=== PATIENT | female | born 1965 | race Caucasian/White ===

== ENCOUNTER 2019-07-30 08:57 | Inpatient (IN) | payer BC ==
[~2019-07-30 08:57] MED LIST: Lactated Ringers 1,000 ML IV SCH; Lidocaine 1%/Sod Bicarbonate in NS 8.4% 1 ML Syringe IDERM PRN; Midazolam 1 MG/ML 2 ML SDV ONE; Propofol 200 MG/20 ML SDV ONE; Sodium Chloride 0.9% 10 ML Syringe FLUSH PRN; fentaNYL 100 MCG/2 ML SDV ONE
[2019-07-30] MEDS ORDERED: oxyCODONE ER 10 MG TAB.ER PO SCH (09:00)
[2019-07-30] MEDS ORDERED: Pregabalin 25 MG Cap PO SCH (09:00)
[2019-07-30] MEDS ORDERED: Acetaminophen 325 MG Tab PO SCH (09:00)
--- NOTE | 2019-07-30 09:22 | PCM.PREANE ---
Preanesthetic Assessment - Procedure Proposed Procedure: right total hip arthroplasty - Anesthesia/Transfusion/Family Hx Anesthesia History: Prior Anesthesia Without Reaction Family History of Anesthesia Reaction: No Transfusion History: No Prior Transfusion(s) - Review of Systems General: No Symptoms Pulmonary: Cough (yesterday- stratchy cough and throat- no cold) Cardiovascular: No Symptoms Gastrointestinal: No Symptoms Neurological: No Symptoms Other: Reports: Anxiety - Physical Assessment NPO Status Date: 07/29/19 NPO Status Time: 21:00 Vital Signs: 138/77 66 97% 16 98.0 Height: 5 ft 4 in Weight: 79.061 kg ASA Class: 2 Mental Status: Alert & Oriented x3 Airway Class: Mallampati = 1 Dentition: Reports: Normal Dentition Thyro-Mental Finger Breadths: 3 Mouth Opening Finger Breadths: 3 ROM/Head Extension: Full Lungs: Clear to Auscultation, Normal Respiratory Effort Cardiovascular: Regular Rate, Regular Rhythm - Lab Values: Laboratory Last Values MRSA (PCR) Negative 07/03/19 12:20 - Allergies Allergies/Adverse Reactions: Allergies Allergy/AdvReac Type Severity Reaction Status Date / Time levofloxacin [From Levaquin] Allergy Mild Itching Verified 11/12/16 06:48 simvastatin [From Zocor] AdvReac Muscle Verified 11/12/16 06:48 Aches - Blood Blood Available: Yes - Acknowledgements Anesthesia Type Planned: Spinal Pt an Appropriate Candidate for the Planned Anesthesia: Yes Alternatives and Risks of Anesthesia Discussed w Pt/Guardian: Yes Pt/Guardian Understands and Agrees with Anesthesia Plan: Yes PreAnesthesia Questionnaire HEENT History: Reports: Impaired Vision Cardiovascular History: Reports: None, High Cholesterol, Other (See Below) Other Cardiovascular History: freqent pvcs, palpitations, cardiac cath Respiratory History: Reports: None Gastrointestinal History: Reports: Chronic Diarrhea (better now), Colon Polyp, Diverticulosis, Gastritis, GERD, Other (See Below) Other Gastrointestinal History: elevated LFTS Genitourinary History: Reports: Renal Calculus 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: Musculoskeletal History: Reports: Other (See Below) Other Musculoskeletal History: L hip pain Neurological History: Reports: None Psychiatric History: Reports: Anxiety, Depression Endocrine/Metabolic History: Reports: None Hematologic History: Reports: None Immunologic History: Reports: None Oncologic (Cancer) History: Reports: None Dermatologic History: Reports: None - Infectious Disease History Infectious Disease History: Reports: Chicken Pox - Past Surgical History Head Surgeries/Procedures: Reports: None HEENT Surgical History: Reports: Oral Surgery Cardiovascular Surgical History: Reports: None Respiratory Surgical History: Reports: None GI Surgical History: Reports: Appendectomy, Cholecystectomy, Colonoscopy, EGD, Hernia Repair/Other, Lysis of Adhesions, Small Bowel Other GI Surgeries/Procedures: appendectomy and surgical intervention for SBO Female Surgical History: Reports: Section Male Surgical History: Reports: None Endocrine Surgical History: Reports: None Neurological Surgical History: Reports: None Musculoskeletal Surgical History: Reports: Hip Replacement Oncologic Surgical History: Reports: None - SUBSTANCE USE Smoking Status *Q: Current Every Day Smoker Tobacco Use Within Last Twelve Months: Cigarettes Second Hand Smoke Exposure: Yes Days Per Week of Alcohol Use: 0 Recreational Drug Use History: No - HOME MEDS Home Medications: Home Meds DULoxetine [Cymbalta] 60 mg PO DAILY #1 11/04/14 [Rx] Ezetimibe [Zetia] 10 mg PO DAILY #1 11/04/14 [Rx] atorvaSTATin [Lipitor] 30 mg PO DAILY #1 11/04/14 [Rx] Aspirin [Ecotrin EC] 81 mg PO DAILY 07/24/16 [History] Omeprazole Magnesium [Prilosec Otc] 1 tab PO DAILY 07/24/16 [History] Acetaminophen/oxyCODONE [Percocet 325-5 MG] 1 - 2 tab PO Q4H PRN #60 tablet [Rx] Bisacodyl [Dulcolax] 5 mg PO DAILY PRN #0 tablet 11/13/16 [Rx] Docusate Sodium [Colace] 100 mg PO BID cap 11/13/16 [Rx] Famotidine [Pepcid] 20 mg PO Q12H tablet 11/13/16 [Rx] Magnesium Hydroxide [Milk of Magnesia] 30 ml PO BID PRN #0 cup 11/13/16 [Rx] Multivitamins,Therapeutic [Thera] 1 each PO DAILY@0800 tablet 11/13/16 [Rx] Rivaroxaban [Xarelto] 10 mg PO DAILY #34 tablet 11/13/16 [Rx] Sennosides [Senna] 8.6 mg PO BID PRN #0 tablet 11/13/16 [Rx] - CURRENT (IN HOUSE) MEDS Current Meds: Current Medications Acetaminophen (Tylenol) 975 mg PO ONETIME [facility] Stop: 07/30/19 16:00 Bisacodyl (Dulcolax) 5 mg PO DAILY PRN PRN Reason: Constipation Morphine Sulfate 8 mg/Epinephrine HCl 0.3 mg/Cefuroxime Sodium 750 mg/Ketorolac Tromethamine 30 mg/Sodium Chloride 27.9 ml 0 mg .XX ONETIME ONE Stop: 07/30/19 11:01 Cyclobenzaprine HCl (Flexeril) 10 mg PO BID PRN PRN Reason: Spasms Docusate Sodium (Colace) 100 mg PO BID MANSI Famotidine (Pepcid) 20 mg PO Q12H [facility] Lactated Ringer's (Ringers, Lactated) 1,000 mls @ 125 mls/hr IV ASDIRECTED [facility] Stop: 07/30/19 23:00 Cefazolin Sodium/Dextrose 2 gm (/ Premix) 50 mls @ 100 mls/hr IV Q8H [facility] Stop: 07/30/19 23:14 Ketorolac Tromethamine (Toradol) 15 mg IVPUSH Q6H PRN PRN Reason: Pain Lidocaine/Sodium Bicarbonate (Buffered Lidocaine 1% In Ns 8.4%) 0.25 ml IDERM ONETIME PRN PRN Reason: Prior to IV Start Stop: 07/30/19 18:00 Magnesium Hydroxide (Milk Of Magnesia) 30 ml PO BID PRN PRN Reason: Constipation Morphine Sulfate (Morphine) 2 mg IVPUSH Q2H PRN PRN Reason: Breakthrough Pain Naloxone HCl (Narcan) 0.1 mg IVPUSH Q5M PRN PRN Reason: Oversedation Ondansetron HCl (Zofran) 4 mg IVPUSH Q6H PRN PRN Reason: Nausea/Vomiting Oxycodone HCl (Oxycontin) 10 mg PO ONETIME [facility] Stop: 07/30/19 16:00 Oxycodone/Acetaminophen (Percocet 325-5 Mg) 1 - 2 tab PO Q4H PRN PRN Reason: Pain Pregabalin (Lyrica) 50 mg PO ONETIME [facility] Stop: 07/30/19 16:00 Rivaroxaban (Xarelto) 10 mg PO DAILY [facility] Senna (Senna) 8.6 mg PO BID PRN PRN Reason: Constipation Sodium Chloride (Saline Flush) 10 ml FLUSH ASDIRECTED PRN PRN Reason: Keep Vein Open Stop: 07/30/19 18:00 Discontinued Medications Cefazolin Sodium (Ancef) Confirm Administered Dose 2 gm .ROUTE .STK-MED ONE Stop: 07/30/19 08:45 Fentanyl (Sublimaze) Confirm Administered Dose 100 mcg .ROUTE .STK-MED ONE Stop: 07/30/19 08:45 Midazolam HCl (Versed 1 Mg/Ml) Confirm Administered Dose 2 mg .ROUTE .STK-MED ONE Stop: 07/30/19 08:45 Propofol (Diprivan 20 Ml) Confirm Administered Dose 600 mg .ROUTE .STK-MED ONE Stop: 07/30/19 08:45
[2019-07-30] MEDS ORDERED: Morphine PF 10 MG/10 ML SDV ONE (09:35)
[2019-07-30] MEDS ORDERED: ceFAZolin 1 GM Vial ONE (10:16)
--- NOTE | 2019-07-30 11:27 | PCM.CONS ---
H&P History of Present Illness - General Date of Service: 07/30/19 Admit Problem/Dx: Admission Diagnosis/Problem Admission Diagnosis/Problem Osteoarthritis of hip Source of Information: Patient, Old Records, Provider, RN, RN Notes Reviewed History Limitations: Reports: No Limitations - History of Present Illness Initial Comments - Free Text/Narative: Kim Smalls is a 54 yo female patient of Dr. Sesay who is post-operative day 0 of right VASU. Hospital medicine was consulted for post-operative medical care of the following listed medical conditions. At this time she is resting comfortably in bed. Pain is controlled. She denies any chest pain, shortness of breath, palpitations, nausea, or vomiting. She carries a history of: Renal stones, colon polyps, tobacco use, anxiety, HLD, rheumatic fever, GERD, history of small bowel obstruction in 2014 with appendectomy, frequent PVCs, osteopenia , diverticulosis, GERD, elevated LFTs, depression, palpitations. She is a current daily smoker. She is a full code. Her primary care provider is Dr. Alejandra. Right Hip Pain Score (Numeric/FACES): 5 - Related Data Allergies/Adverse Reactions: Allergies Allergy/AdvReac Type Severity Reaction Status Date / Time levofloxacin [From Levaquin] Allergy Mild Itching Verified 07/30/19 15:01 simvastatin [From Zocor] AdvReac Muscle Verified 07/30/19 15:01 Aches Home Medications: Home Meds Ezetimibe [Zetia] 10 mg PO DAILY #1 11/04/14 [Rx] atorvaSTATin [Lipitor] 30 mg PO DAILY #1 11/04/14 [Rx] Aspirin [Ecotrin EC] 81 mg PO DAILY 07/24/16 [History] Desvenlafaxine Succinate [Pristiq] 25 mg PO DAILY 07/30/19 [History] Past Medical History HEENT History: Reports: Impaired Vision Cardiovascular History: Reports: None, High Cholesterol, Other (See Below) Other Cardiovascular History: freqent pvcs, palpitations, cardiac cath Respiratory History: Reports: None Gastrointestinal History: Reports: Chronic Diarrhea (better now), Colon Polyp, Diverticulosis, Gastritis, GERD, Other (See Below) Other Gastrointestinal History: elevated LFTS Genitourinary History: Reports: Renal Calculus [employer]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: Musculoskeletal History: Reports: Other (See Below) Other Musculoskeletal History: L hip pain Neurological History: Reports: None Psychiatric History: Reports: Anxiety, Depression Endocrine/Metabolic History: Reports: None Hematologic History: Reports: None Immunologic History: Reports: None Oncologic (Cancer) History: Reports: None Dermatologic History: Reports: None - Infectious Disease History Infectious Disease History: Reports: Chicken Pox - Past Surgical History Head Surgeries/Procedures: Reports: None HEENT Surgical History: Reports: Oral Surgery Cardiovascular Surgical History: Reports: None Respiratory Surgical History: Reports: None GI Surgical History: Reports: Appendectomy, Cholecystectomy, Colonoscopy, EGD, Hernia Repair/Other, Lysis of Adhesions, Small Bowel Other GI Surgeries/Procedures: appendectomy and surgical intervention for SBO Female Surgical History: Reports: Section Male Surgical History: Reports: None Endocrine Surgical History: Reports: None Neurological Surgical History: Reports: None Musculoskeletal Surgical History: Reports: Hip Replacement Oncologic Surgical History: Reports: None Social & Family History - Family History Cardiac: Reports: Other (See Below) Other Cardiac Family History: heart disease - Tobacco Use Smoking Status *Q: Current Every Day Smoker Years of Tobacco use: 35 Packs/Tins Daily: 0.4 Used Tobacco, but Quit: No Second Hand Smoke Exposure: Yes - Caffeine Use Caffeine Use: Reports: Soda Caffeine Use Comment: dt. mtn. villegas-- 32oz daily - Alcohol Use Days Per Week of Alcohol Use: 0 - Recreational Drug Use Recreational Drug Use: No H&P Review of Systems - Review of Systems: Review Of Systems: See Below General: Reports: No Symptoms. Denies: Fever, Chills HEENT: Reports: No Symptoms. Denies: Headaches, Sore Throat Pulmonary: Reports: No Symptoms. Denies: Shortness of Breath, Wheezing, Pleuritic Chest Pain, Cough, Sputum Cardiovascular: Reports: No Symptoms. Denies: Chest Pain, Palpitations, Edema Gastrointestinal: Reports: No Symptoms. Denies: Abdominal Pain, Constipation, Diarrhea, Nausea, Vomiting Genitourinary: Reports: No Symptoms. Denies: Pain Musculoskeletal: Reports: Leg Pain (right ) Skin: Reports: No Symptoms. Denies: Cyanosis Psychiatric: Reports: No Symptoms. Denies: Confusion Neurological: Reports: Difficulty Walking, Gait Disturbance. Denies: Pre- Existing Deficit Hematologic/Lymphatic: Reports: No Symptoms Immunologic: Reports: No Symptoms Exam - Exam Exam: See Below - Vital Signs Vital Signs: Last Vital Signs Temp 98.0 F 07/30/19 09:10 Pulse 66 07/30/19 09:10 Resp 16 07/30/19 09:10 BP 138/77 07/30/19 09:10 Pulse Ox 97 07/30/19 09:10 Weight: 174 lb - Exam Quality Assessment: DVT Prophylaxis General: Alert, Oriented, Cooperative. No: Mild Distress HEENT: Conjunctiva Clear, EACs Clear, EOMI, Hearing Intact, Mucosa Moist & [place] , Nares Patent, Posterior Pharynx Clear, PERRLA Neck: Supple, Trachea Midline Lungs: Clear to Auscultation, Normal Respiratory Effort Cardiovascular: Regular Rate, Regular Rhythm GI/Abdominal Exam: Normal Bowel Sounds, Soft, Non-Tender, No Distention, No Abnormal Bruit (Female) Exam: Deferred Rectal (Female) Exam: Deferred Back Exam: Normal Inspection, Full Range of Motion Extremities: No Pedal Edema, Normal Capillary Refill, Leg Pain, Limited Range of Motion, Other (Bandage in place on right leg. Bandage is dry and intact. Cooling pack in place. ) Peripheral Pulses: 2+: Radial (L), Radial (R), Dorsalis Pedis (L), Dorsalis Pedis (R) Skin: Warm, Dry, Intact Neurological: Cranial Nerves Intact (Grossly) Neuro Extensive - Mental Status: Alert, Oriented x3, Normal Mood/Affect - Patient Data Lab Results Last 24 hrs: Laboratory Results - last 24 hr 07/30/19 Range/Units 09:27 Blood Type A NEGATIVE Gel Antibody Screen Negative Consult PN Assessment/Plan POD#: 0 Procedures: Procedures AGENT NOS ASSAY W/OPTIC (07/25/16) ASSAY GLUCOSE BLOOD QUANT (06/22/16) ASSAY OF ESTRADIOL (06/22/16) ASSAY OF TOTAL TESTOSTERONE (06/22/16) ASSAY THYROID STIM HORMONE (06/19/16) BREAST TOMOSYNTHESIS BI (09/19/18) C DIFF AMPLIFIED PROBE (07/25/16) CARDIOVASCULAR STRESS TEST (12/09/15) COLONOSCOPY AND BIOPSY (07/25/16) COMP SCREEN MAMMOGRAM ADD-ON (06/19/16) CRYPTOSPORIDIUM AG IA (07/25/16) DRAIN/INJ JOINT/BURSA W/O US (02/15/16) EGD BIOPSY SINGLE/MULTIPLE (07/25/16) GIARDIA AG IA (07/25/16) HT MUSCLE IMAGE SPECT MULT (12/09/15) LEUKOCYTE ASSESSMENT FECAL (07/25/16) MANUAL THERAPY 1/> REGIONS (12/20/16) MR-STAPH DNA AMP PROBE (10/26/16) NEUROMUSCULAR REEDUCATION (12/20/16) PT EVAL LOW COMPLEX 20 MIN (11/20/16) ROUTINE VENIPUNCTURE (06/22/16) SCR MAMMO BI INCL CAD (09/19/18) STOOL CULTR AEROBIC BACT EA (07/25/16) THERAPEUTIC EXERCISES (12/20/16) TISSUE EXAM BY PATHOLOGIST (07/25/16) VANOMYCIN DNA AMP PROBE (07/25/16) VIT D 1 25-DIHYDROXY (06/22/16) X-RAY EXAM OF HIP (01/13/14) X-RAY EXAM OF PELVIS (01/13/14) (1) S/P total hip arthroplasty SNOMED Code(s): 831703757044, 779675305195 Code(s): Z96.649 - PRESENCE OF UNSPECIFIED ARTIFICIAL HIP JOINT Priority: High Current Visit: Yes Qualifiers: Laterality: right Qualified Code(s): Z96.641 - Presence of right artificial hip joint (2) Anxiety SNOMED Code(s): 34218151 Code(s): F41.9 - ANXIETY DISORDER, UNSPECIFIED Priority: Medium Current Visit: No (3) Colon polyps SNOMED Code(s): 38925289 Code(s): K63.5 - POLYP OF COLON Priority: Low Current Visit: No Qualifiers: Colon polyp type: unspecified Colon location: unspecified part of colon Qualified Code(s): K63.5 - Polyp of colon (4) Diverticulosis SNOMED Code(s): 63982855 Code(s): K57.90 - DVRTCLOS OF INTEST, PART UNSP, W/O PERF OR ABSCESS W/O BLEED Priority: Low Current Visit: No Qualifiers: Diverticulosis site: unspecified location Diverticulosis bleeding: diverticulosis without bleeding Qualified Code(s): K57.90 - Diverticulosis of intestine, part unspecified, without perforation or abscess without bleeding (5) GERD (gastroesophageal reflux disease) SNOMED Code(s): 650650011 Code(s): K21.9 - GASTRO-ESOPHAGEAL REFLUX DISEASE WITHOUT ESOPHAGITIS Priority: Medium Current Visit: No Qualifiers: Esophagitis presence: esophagitis presence not specified Qualified Code(s) : K21.9 - Gastro-esophageal reflux disease without esophagitis (6) HLD (hyperlipidemia) SNOMED Code(s): 91009953 Code(s): E78.5 - HYPERLIPIDEMIA, UNSPECIFIED Priority: Medium Current Visit: No Qualifiers: Hyperlipidemia type: unspecified Qualified Code(s): E78.5 - Hyperlipidemia , unspecified (7) HTN (hypertension) SNOMED Code(s): 00995742 Code(s): I10 - ESSENTIAL (PRIMARY) HYPERTENSION Priority: Medium Current Visit: No Qualifiers: Hypertension type: essential hypertension Qualified Code(s): I10 - Essential (primary) hypertension (8) Osteoarthritis SNOMED Code(s): 634380226 Code(s): M19.90 - UNSPECIFIED OSTEOARTHRITIS, UNSPECIFIED SITE Priority: High Current Visit: Yes Qualifiers: Osteoarthritis location: hip Osteoarthritis type: primary Laterality: right Qualified Code(s): M16.11 - Unilateral primary osteoarthritis, right hip Problem List Initiated/Reviewed/Updated: Yes Plan: I/P: Acute: S/P right total hip arthroplasty - post-operative day 0 -DVT prophylaxis and pain management per primary care team -PT/OT -IS/RT -Monitor oxygen saturation -Titrate oxygen as needed -Home medications reviewed -Vital signs stable -Monitor labs -Pre-operative Hgb was 15.3 -Pre-operative GFR was 81 Osteoarthritis of right hip -Pain management per primary care team Chronic: Renal stones colon polyps tobacco use anxiety HLD rheumatic fever GERD history of small bowel obstruction in 2014 with appendectomy frequent PVCs osteopenia diverticulosis GERD elevated LFTs depression palpitations Plan: Telemetry CM for discharge planning GI prophylaxis Home medications as indicated Other orders as listed above Routine AM labs She is a full code. Her PCP is Dr. Alejandra Thank you for allowing us to participate in the care of this patient!! Requesting Provider: Dr. Sesay Date Consult Requested: 07/30/19 Patient History Reviewed: Yes Admission H&P Reviewed: Yes
[2019-07-30] MEDS ORDERED: Sennosides 8.6 MG Tab PO PRN (11:30)
[2019-07-30] MEDS ORDERED: Bisacodyl 5 MG Tab PO PRN (11:30)
[2019-07-30] MEDS ORDERED: Magnesium Hydroxide 400 MG/5 ML Susp 30 ML Cup PO PRN (11:30)
[2019-07-30] MEDS ORDERED: Morphine 2 MG/ML Syringe IVPUSH PRN (11:30)
[2019-07-30] MEDS ORDERED: Ondansetron 4 MG/2 ML SDV IVPUSH PRN ×2 (11:30→12:14)
[2019-07-30] MEDS ORDERED: Naloxone 0.4 MG/ML SDV IVPUSH PRN (11:30)
[2019-07-30] MEDS ORDERED: Cyclobenzaprine 10 MG Tab PO PRN (11:30)
[2019-07-30] MEDS ORDERED: Albuterol/Ipratropium 3.0-0.5 MG/3 ML Neb Soln NEB PRN (11:36)
[2019-07-30] MEDS ORDERED: Lactated Ringers 1,000 ML ONE ×2 (11:56→12:16)
[2019-07-30] MEDS ORDERED: ePHEDrine/Normal Saline 25 MG/5 ML Syringe ONE ×3 (11:57→12:47)
[2019-07-30] MEDS ORDERED: diphenhydrAMINE 50 MG/ML SDV IVPUSH PRN (12:14)
[2019-07-30] MEDS ORDERED: fentaNYL 100 MCG/2 ML SDV IVPUSH PRN (12:14)
[2019-07-30] MEDS ORDERED: Lidocaine 1% 4 ML ONE (12:17)
[2019-07-30] MEDS ORDERED: Phenylephrine/Normal Saline 100 MCG/ML 10 ML Syringe ONE (12:23)
[2019-07-30] MEDS: ceFAZolin 1 GM Vial ONE ×2 (12:40→13:10)
[2019-07-30] MEDS: Bupivacaine 0.25% 10 ML SDV ONE ×2 (12:40→13:12)
[2019-07-30] MEDS: Iodine/Sodium Iodide 2% Tincture 30 ML Bottle ONE ×2 (12:41→13:06)
[2019-07-30] MEDS: Morphine 8 MG, EPINEPHrine 0.3 MG, Cefuroxime 750 MG, Ketorolac 30 MG, Sodium Chloride ... ONE ×10 (12:41→13:13)
[2019-07-30] MEDS: Vancomycin 1 GM SDV ONE ×2 (12:44→13:16)
[2019-07-30] MEDS ORDERED: Scopolamine 1.5 MG Transdermal Patch TRDERM PRN (12:45)
[2019-07-30] MEDS ORDERED: Midazolam 1 MG/ML 2 ML SDV ONE (13:14)
--- NOTE | 2019-07-30 13:50 | PCM.POSTAN ---
POST ANESTHESIA ASSESSMENT - MENTAL STATUS Mental Status: Alert, Oriented - VITAL SIGNS Vital Signs: Last Vital Signs Temp 98.0 F 07/30/19 09:10 Pulse 66 07/30/19 09:10 Resp 16 07/30/19 09:10 BP 138/77 07/30/19 09:10 Pulse Ox 97 07/30/19 09:10 78 16 98.4 120/69 99% - RESPIRATORY Respiratory Status: Respiratory Rate WNL, Airway Patent, O2 Saturation Stable, Supplemental Oxygen - CARDIOVASCULAR CV Status: Pulse Rate WNL, Blood Pressure Stable - GASTROINTESTINAL GI Status: No Symptoms - PAIN Pain Score: 0 - POST OP HYDRATION Hydration Status: Adequate & Stable
[2019-07-30] MEDS ORDERED: Nicotine 21 MG/24 Hr Patch TRDERM SCH (14:00)
[2019-07-30] MEDS ORDERED: Sodium Chloride 0.9% 500 ML IV ONE (15:37)
--- NOTE | 2019-07-30 15:44 | CR ---
Pelvis and left hip: AP view of the pelvis was obtained as well as crosstable lateral view of left hip. Comparison: Prior pelvis and left hip study of 11/12/16. Bilateral hip prosthesis are seen. Right hip prosthesis appears recently placed. Left hip prosthesis is stable from prior exam. Bony structures are osteopenic. No acute bony abnormality is identified. Impression: 1. Recently placed right hip prosthesis. 2. Stable left hip prosthesis. 3. Nothing acute is seen. Diagnostic code #2
[2019-07-30] MEDS: ceFAZolin 2 GM in Premix Bag 1 BAG IV SCH (18:28)
[2019-07-30] MEDS: Acetaminophen/oxyCODONE 325-5 MG Tab PO PRN ×2 (18:28→22:52)
[2019-07-30] MEDS: Famotidine 20 MG Tab PO SCH (21:01)
[2019-07-30] MEDS: Docusate Sodium 100 MG Cap PO SCH (21:01)
[2019-07-30] MEDS ORDERED: Lactated Ringers 500 ML IV ONE (21:19)
[2019-07-30] MEDS: Ketorolac 15 MG/ML SDV IVPUSH PRN (22:58)
[2019-07-31] MEDS: ceFAZolin 2 GM in Premix Bag 1 BAG IV SCH ×2 (03:29→10:59)
[2019-07-31] MEDS: Ketorolac 15 MG/ML SDV IVPUSH PRN (06:53)
[2019-07-31] MEDS: Acetaminophen/oxyCODONE 325-5 MG Tab PO PRN ×2 (06:56→12:33)
--- NOTE | 2019-07-31 07:24 | PCM.CONSN ---
- General Info Date of Service: 07/31/19 Admission Dx/Problem (Free Text): Admission Diagnosis/Problem Admission Diagnosis/Problem Osteoarthritis of hip Functional Status: Reports: Pain Controlled, Tolerating Diet, Ambulating, Urinating, Incentive Spirometry. Denies: New Symptoms - Review of Systems General: Reports: No Symptoms. Denies: Fever, Weakness, Fatigue, Malaise, Chills HEENT: Reports: No Symptoms. Denies: Headaches, Sore Throat Pulmonary: Reports: No Symptoms. Denies: Shortness of Breath, Pleuritic Chest Pain, Cough, Sputum, Wheezing Cardiovascular: Reports: No Symptoms. Denies: Chest Pain, Palpitations Gastrointestinal: Reports: No Symptoms. Denies: Abdominal Pain, Constipation, Diarrhea, Nausea, Vomiting Genitourinary: Reports: No Symptoms. Denies: Pain Musculoskeletal: Reports: Leg Pain (right leg ) Skin: Reports: No Symptoms. Denies: Cyanosis Neurological: Reports: Difficulty Walking, Gait Disturbance. Denies: Confusion Psychiatric: Reports: No Symptoms - Patient Data Vitals - Most Recent: Last Vital Signs Temp 98.6 F 07/31/19 03:25 Pulse 61 07/31/19 03:25 Resp 16 07/31/19 03:25 BP 103/57 L 07/31/19 03:25 Pulse Ox 96 07/31/19 03:25 Weight - Most Recent: 184 lb 11.2 oz I&O - Last 24 Hours: Intake & Output 07/30/19 07/31/19 07/31/19 22:59 06:59 14:59 Intake Total 2300 1500 Output Total 150 1600 Balance 2150 -100 Lab Results Last 24 Hours: Laboratory Results - last 24 hr 07/30/19 07/31/19 07/31/19 Range/Units 09:27 05:57 05:57 WBC 6.00 (3.98-10.04) K/mm3 RBC 3.72 L (3.98-5.22) M/mm3 Hgb 11.3 (11.2-15.7) gm/dl Hct 35.7 (34.1-44.9) % MCV 96.0 H (79.4-94.8) fl MCH 30.4 (25.6-32.2) pg MCHC 31.7 L (32.2-35.5) g/dl RDW Std Deviation 41.4 (36.4-46.3) fL Plt Count 189 (182-369) K/mm3 MPV 9.4 (9.4-12.3) fl Sodium 142 (136-145) mEq/L Potassium 3.9 (3.5-5.1) mEq/L Chloride 106 (98-107) mEq/L Carbon Dioxide 29 (21-32) mEq/L Anion Gap 10.9 (5-15) BUN 11 (7-18) mg/dL Creatinine 0.9 (0.55-1.02) mg/dL Est Cr Clr Drug Dosing 60.99 mL/min Estimated GFR (MDRD) > 60 (>60) mL/min BUN/Creatinine Ratio 12.2 L (14-18) Glucose 98 (74-106) mg/dL Calcium 8.3 L (8.5-10.1) mg/dL Total Bilirubin 0.5 (0.2-1.0) mg/dL AST 55 H (15-37) U/L ALT 35 (14-59) U/L Alkaline Phosphatase 76 (46-116) U/L Total Protein 5.7 L (6.4-8.2) g/dl Albumin 3.0 L (3.4-5.0) g/dl Globulin 2.7 gm/dL Albumin/Globulin Ratio 1.1 (1-2) Blood Type A NEGATIVE Gel Antibody Screen Negative Med Orders - Current: Current Medications Albuterol/Ipratropium (Duoneb 3.0-0.5 Mg/3 Ml) 3 ml NEB Q6HRRT PRN PRN Reason: SOB/Wheezing Bisacodyl (Dulcolax) 5 mg PO DAILY PRN PRN Reason: Constipation Cyclobenzaprine HCl (Flexeril) 10 mg PO BID PRN PRN Reason: Spasms Docusate Sodium (Colace) 100 mg PO BID [facility] Last Admin: 07/30/19 21:01 Dose: 100 mg Ezetimibe (Zetia) 10 mg PO DAILY [facility] Famotidine (Pepcid) 20 mg PO Q12H [facility] Last Admin: 07/30/19 21:01 Dose: 20 mg Cefazolin Sodium/Dextrose 2 gm (/ Premix) 50 mls @ 100 mls/hr IV Q8H [facility] Stop: 07/31/19 11:29 Last Admin: 07/31/19 03:29 Dose: 100 mls/hr Ketorolac Tromethamine (Toradol) 15 mg IVPUSH Q6H PRN PRN Reason: Pain Last Admin: 07/31/19 06:53 Dose: 15 mg Magnesium Hydroxide (Milk Of Magnesia) 30 ml PO BID PRN PRN Reason: Constipation Miscellaneous Information (Remove Patch) 0 ea TRDERM Q24H [facility] Morphine Sulfate (Morphine) 2 mg IVPUSH Q2H PRN PRN Reason: Breakthrough Pain Naloxone HCl (Narcan) 0.1 mg IVPUSH Q5M PRN PRN Reason: Oversedation Nicotine (Habitrol) 21 mg TRDERM Q24H [facility] Last Admin: 07/30/19 15:55 Dose: Not Given Ondansetron HCl (Zofran) 4 mg IVPUSH Q6H PRN PRN Reason: Nausea/Vomiting Oxycodone/Acetaminophen (Percocet 325-5 Mg) 1 - 2 tab PO Q4H PRN PRN Reason: Pain Last Admin: 07/31/19 06:56 Dose: 2 tab Atorvastatin 30 Mg 0 each PO DAILY [facility] Desvenlafaxine Succinate [Pristiq] 25 Mg 0 each PO DAILY [facility] Rivaroxaban (Xarelto) 10 mg PO DAILY [facility] Scopolamine (Transderm-Scop) 1.5 mg TRDERM Q72H PRN PRN Reason: Nausea Senna (Senna) 8.6 mg PO BID PRN PRN Reason: Constipation Discontinued Medications Acetaminophen (Tylenol) 975 mg PO ONETIME [facility] Stop: 07/30/19 16:00 Last Admin: 07/30/19 09:58 Dose: 975 mg Bupivacaine HCl (Sensorcaine-Mpf 0.25%) Confirm Administered Dose 30 ml .ROUTE .STK-MED ONE Stop: 07/30/19 10:18 Last Admin: 07/30/19 13:12 Dose: 30 ml Cefazolin Sodium (Ancef) Confirm Administered Dose 2 gm .ROUTE .STK-MED ONE Stop: 07/30/19 08:45 Last Admin: 07/30/19 13:10 Dose: 2 gm Cefazolin Sodium (Ancef) Confirm Administered Dose 2 gm .ROUTE .STK-MED ONE Stop: 07/30/19 10:17 Morphine Sulfate 8 mg/Epinephrine HCl 0.3 mg/Cefuroxime Sodium 750 mg/Ketorolac Tromethamine 30 mg/Sodium Chloride 27.9 ml 0 mg .XX ONETIME ONE Stop: 07/30/19 11:01 Last Admin: 07/30/19 13:13 Dose: 788.3 mg Diphenhydramine HCl (Benadryl) 25 mg IVPUSH Q6H PRN PRN Reason: Pruritis Stop: 07/30/19 15:00 Ephedrine Sulfate (Ephedrine In Ns) Confirm Administered Dose 25 mg .ROUTE .STK- MED ONE Stop: 07/30/19 11:58 Ephedrine Sulfate (Ephedrine In Ns) Confirm Administered Dose 25 mg .ROUTE .STK- MED ONE Stop: 07/30/19 12:16 Ephedrine Sulfate (Ephedrine In Ns) Confirm Administered Dose 25 mg .ROUTE .STK- MED ONE Stop: 07/30/19 12:48 Fentanyl (Sublimaze) Confirm Administered Dose 100 mcg .ROUTE .STK-MED ONE Stop: 07/30/19 08:45 Fentanyl (Sublimaze) 50 mcg IVPUSH Q5M PRN PRN Reason: Pain Stop: 07/30/19 13:00 Lactated Ringer's (Ringers, Lactated) 1,000 mls @ 125 mls/hr IV ASDIRECTED MANSI Stop: 07/30/19 23:00 Last Admin: 07/30/19 09:35 Dose: 125 mls/hr Lactated Ringer's (Ringers, Lactated) Confirm Administered Dose 1,000 mls @ as directed .ROUTE .STK-MED ONE Stop: 07/30/19 11:57 Lactated Ringer's (Ringers, Lactated) Confirm Administered Dose 1,000 mls @ as directed .ROUTE .STK-MED ONE Stop: 07/30/19 12:17 Lidocaine HCl (Xylocaine-Mpf 1%) Confirm Administered Dose 4 mls @ as directed .ROUTE .STK-MED ONE Stop: 07/30/19 12:18 Sodium Chloride (Normal Saline) 500 mls @ 999 mls/hr IV .BOLUS ONE Stop: 07/30/19 16:07 Last Admin: 07/30/19 16:08 Dose: 999 mls/hr Lactated Ringer's (Ringers, Lactated) 500 mls @ 500 mls/hr IV .BOLUS ONE Stop: 07/30/19 22:18 Last Admin: 07/30/19 21:45 Dose: 500 mls/hr Iodine (Iodine 2% Mild Tincture) Confirm Administered Dose 30 ml .ROUTE .STK- MED ONE Stop: 07/30/19 10:18 Last Admin: 07/30/19 13:06 Dose: 18 ml Lidocaine/Sodium Bicarbonate (Buffered Lidocaine 1% In Ns 8.4%) 0.25 ml IDERM ONETIME PRN PRN Reason: Prior to IV Start Stop: 07/30/19 18:00 Last Admin: 07/30/19 09:36 Dose: 0.25 ml Midazolam HCl (Versed 1 Mg/Ml) Confirm Administered Dose 2 mg .ROUTE .STK-MED ONE Stop: 07/30/19 08:45 Midazolam HCl (Versed 1 Mg/Ml) Confirm Administered Dose 2 mg .ROUTE .STK-MED ONE Stop: 07/30/19 13:15 Morphine Sulfate (Duramorph Pf) Confirm Administered Dose 10 mg .ROUTE .STK-MED ONE Stop: 07/30/19 09:36 Ondansetron HCl (Zofran) 4 mg IVPUSH ONETIME PRN PRN Reason: Nausea/Vomiting Stop: 07/30/19 15:00 Oxycodone HCl (Oxycontin) 10 mg PO ONETIME [facility] Stop: 07/30/19 16:00 Last Admin: 07/30/19 09:58 Dose: 10 mg Phenylephrine HCl (Phenylephrine In Ns 100 Mcg/Ml) Confirm Administered Dose 1 mg .ROUTE .STK-MED ONE Stop: 07/30/19 12:24 Pregabalin (Lyrica) 50 mg PO ONETIME [facility] Stop: 07/30/19 16:00 Last Admin: 07/30/19 09:58 Dose: 50 mg Propofol (Diprivan 20 Ml) Confirm Administered Dose 600 mg .ROUTE .STK-MED ONE Stop: 07/30/19 08:45 Sodium Chloride (Saline Flush) 10 ml FLUSH ASDIRECTED PRN PRN Reason: Keep Vein Open Stop: 07/30/19 18:00 Tranexamic Acid (Cyklokapron) Confirm Administered Dose 1,000 mg .ROUTE .STK- MED ONE Stop: 07/30/19 10:17 Last Admin: 07/30/19 13:15 Dose: 1,000 mg Vancomycin HCl (Vancomycin) Confirm Administered Dose 1 gm .ROUTE .STK-MED ONE Stop: 07/30/19 10:17 Last Admin: 07/30/19 13:16 Dose: 1 gm - Exam Quality Assessment: DVT Prophylaxis. No: Supplemental Oxygen, Urine Catheter General: Alert, Oriented, Cooperative, No Acute Distress HEENT: Pupils Equal, Pupils Reactive, Mucous Membr. Moist/[place] Neck: Supple, Trachea Midline Lungs: Clear to Auscultation, Normal Respiratory Effort Cardiovascular: Regular Rate, Regular Rhythm GI/Abdominal Exam: Normal Bowel Sounds, Soft, Non-Tender, No Distention, No Abnormal Bruit (Female) Exam: Deferred Back Exam: Normal Inspection, Full Range of Motion Extremities: No Pedal Edema, Normal Capillary Refill, Leg Pain, Limited Range of Motion, Other (Bandage in place on right leg. Cooling pack in place ) Peripheral Pulses: 3+: Radial (L), Radial (R), Dorsalis Pedis (L), Dorsalis Pedis (R) Skin: Warm, Dry, Intact Wound/Incisions: Dressing Dry and Intact Neurological: No New Focal Deficit Psy/Mental Status: Alert, Normal Affect, Normal Mood Consult PN Assessment/Plan POD#: 1 Procedures: Procedures AGENT NOS ASSAY W/OPTIC (07/25/16) ASSAY GLUCOSE BLOOD QUANT (06/22/16) ASSAY OF ESTRADIOL (06/22/16) ASSAY OF TOTAL TESTOSTERONE (06/22/16) ASSAY THYROID STIM HORMONE (06/19/16) BREAST TOMOSYNTHESIS BI (09/19/18) C DIFF AMPLIFIED PROBE (07/25/16) CARDIOVASCULAR STRESS TEST (12/09/15) COLONOSCOPY AND BIOPSY (07/25/16) COMP SCREEN MAMMOGRAM ADD-ON (06/19/16) CRYPTOSPORIDIUM AG IA (07/25/16) DRAIN/INJ JOINT/BURSA W/O US (02/15/16) EGD BIOPSY SINGLE/MULTIPLE (07/25/16) GIARDIA AG IA (07/25/16) HT MUSCLE IMAGE SPECT MULT (12/09/15) LEUKOCYTE ASSESSMENT FECAL (07/25/16) MANUAL THERAPY 1/> REGIONS (12/20/16) MR-STAPH DNA AMP PROBE (10/26/16) NEUROMUSCULAR REEDUCATION (12/20/16) PT EVAL LOW COMPLEX 20 MIN (11/20/16) ROUTINE VENIPUNCTURE (06/22/16) SCR MAMMO BI INCL CAD (09/19/18) STOOL CULTR AEROBIC BACT EA (07/25/16) THERAPEUTIC EXERCISES (12/20/16) TISSUE EXAM BY PATHOLOGIST (07/25/16) VANOMYCIN DNA AMP PROBE (07/25/16) VIT D 1 25-DIHYDROXY (06/22/16) X-RAY EXAM OF HIP (01/13/14) X-RAY EXAM OF PELVIS (01/13/14) (1) S/P total hip arthroplasty SNOMED Code(s): 752969152984, 531871328996 Code(s): Z96.649 - PRESENCE OF UNSPECIFIED ARTIFICIAL HIP JOINT Priority: High Current Visit: Yes Qualifiers: Laterality: right Qualified Code(s): Z96.641 - Presence of right artificial hip joint (2) Anxiety SNOMED Code(s): 74827859 Code(s): F41.9 - ANXIETY DISORDER, UNSPECIFIED Priority: Medium Current Visit: No (3) Colon polyps SNOMED Code(s): 33074761 Code(s): K63.5 - POLYP OF COLON Priority: Low Current Visit: No Qualifiers: Colon polyp type: unspecified Colon location: unspecified part of colon Qualified Code(s): K63.5 - Polyp of colon (4) Diverticulosis SNOMED Code(s): 82975204 Code(s): K57.90 - DVRTCLOS OF INTEST, PART UNSP, W/O PERF OR ABSCESS W/O BLEED Priority: Low Current Visit: No Qualifiers: Diverticulosis site: unspecified location Diverticulosis bleeding: diverticulosis without bleeding Qualified Code(s): K57.90 - Diverticulosis of intestine, part unspecified, without perforation or abscess without bleeding (5) GERD (gastroesophageal reflux disease) SNOMED Code(s): 579289305 Code(s): K21.9 - GASTRO-ESOPHAGEAL REFLUX DISEASE WITHOUT ESOPHAGITIS Priority: Medium Current Visit: No Qualifiers: Esophagitis presence: esophagitis presence not specified Qualified Code(s) : K21.9 - Gastro-esophageal reflux disease without esophagitis (6) HLD (hyperlipidemia) SNOMED Code(s): 83334454 Code(s): E78.5 - HYPERLIPIDEMIA, UNSPECIFIED Priority: Medium Current Visit: No Qualifiers: Hyperlipidemia type: unspecified Qualified Code(s): E78.5 - Hyperlipidemia , unspecified (7) HTN (hypertension) SNOMED Code(s): 13625217 Code(s): I10 - ESSENTIAL (PRIMARY) HYPERTENSION Priority: Medium Current Visit: No Qualifiers: Hypertension type: essential hypertension Qualified Code(s): I10 - Essential (primary) hypertension (8) Osteoarthritis SNOMED Code(s): 008539358 Code(s): M19.90 - UNSPECIFIED OSTEOARTHRITIS, UNSPECIFIED SITE Priority: High Current Visit: Yes Qualifiers: Osteoarthritis location: hip Osteoarthritis type: primary Laterality: right Qualified Code(s): M16.11 - Unilateral primary osteoarthritis, right hip Problem List Initiated/Reviewed/Updated: Yes My Orders Last 24 Hours: My Active Orders 07/30/19 11:31 Patient Status [ADT] Routine 07/30/19 11:36 Albuterol/Ipratropium [DuoNeb 3.0-0.5 MG/3 ML] 3 ml NEB Q6HRRT PRN 07/30/19 14:00 Nicotine [Habitrol] 21 mg TRDERM Q24H 07/31/19 09:00 Ezetimibe [Zetia] 10 mg PO DAILY Patient's Own Medication [Ptom] 0 each PO DAILY Patient's Own Medication [Ptom] 0 each PO DAILY 07/31/19 14:00 Remove Patch 0 ea TRDERM Q24H Plan: I/P: Acute: S/P right total hip arthroplasty - post-operative day 1 -DVT prophylaxis and pain management per primary care team -PT/OT -IS/RT -Monitor oxygen saturation -Titrate oxygen as needed -Home medications reviewed -Vital signs stable -Monitor labs -Pre-operative Hgb was 15.3; Now 11.3 -Pre-operative GFR was 81; Now >60 Osteoarthritis of right hip -Pain management per primary care team Chronic: Renal stones colon polyps tobacco use anxiety HLD rheumatic fever GERD history of small bowel obstruction in 2014 with appendectomy frequent PVCs osteopenia diverticulosis GERD elevated LFTs depression palpitations Plan: Telemetry CM for discharge planning GI prophylaxis Home medications as indicated Other orders as listed above Routine AM labs She is a full code. Her PCP is Dr. Alejandra From a hospitalist standpoint Kim Lopez is doing well. She has been up ambulating and working with therapies. She is off of oxygen and has urinated since her xie was removed. Pain is controlled. Her labs and vital signs remain stable. She is cleared for discharge pending primary team and PT/OT agreement. Thank you for allowing us to participate in the care of this patient!!
--- NOTE | 2019-07-31 08:13 | PCM.SURGPN ---
- General Info Date of Service: 07/31/19 POD#: 1 Functional Status: Reports: Pain Controlled, Tolerating Diet, Ambulating, Urinating, Incentive Spirometry, Other (The pt states she is doing well. Nursing staff indicates pt has been doing well.) - Patient Data Vitals - Most Recent: Last Vital Signs Temp 98.6 F 07/31/19 03:25 Pulse 61 07/31/19 03:25 Resp 16 07/31/19 03:25 BP 103/57 L 07/31/19 03:25 Pulse Ox 96 07/31/19 03:25 Weight - Most Recent: 184 lb 11.2 oz I&O - Last 24 Hours: Intake & Output 07/30/19 07/31/19 07/31/19 22:59 06:59 14:59 Intake Total 2300 1500 Output Total 150 1600 Balance 2150 -100 Lab Results Last 24 Hrs: Laboratory Results - last 24 hr 07/30/19 07/31/19 07/31/19 Range/Units 09:27 05:57 05:57 WBC 6.00 (3.98-10.04) K/mm3 RBC 3.72 L (3.98-5.22) M/mm3 Hgb 11.3 (11.2-15.7) gm/dl Hct 35.7 (34.1-44.9) % MCV 96.0 H (79.4-94.8) fl MCH 30.4 (25.6-32.2) pg MCHC 31.7 L (32.2-35.5) g/dl RDW Std Deviation 41.4 (36.4-46.3) fL Plt Count 189 (182-369) K/mm3 MPV 9.4 (9.4-12.3) fl Sodium 142 (136-145) mEq/L Potassium 3.9 (3.5-5.1) mEq/L Chloride 106 (98-107) mEq/L Carbon Dioxide 29 (21-32) mEq/L Anion Gap 10.9 (5-15) BUN 11 (7-18) mg/dL Creatinine 0.9 (0.55-1.02) mg/dL Est Cr Clr Drug Dosing 60.99 mL/min Estimated GFR (MDRD) > 60 (>60) mL/min BUN/Creatinine Ratio 12.2 L (14-18) Glucose 98 (74-106) mg/dL Calcium 8.3 L (8.5-10.1) mg/dL Total Bilirubin 0.5 (0.2-1.0) mg/dL AST 55 H (15-37) U/L ALT 35 (14-59) U/L Alkaline Phosphatase 76 (46-116) U/L Total Protein 5.7 L (6.4-8.2) g/dl Albumin 3.0 L (3.4-5.0) g/dl Globulin 2.7 gm/dL Albumin/Globulin Ratio 1.1 (1-2) Blood Type A NEGATIVE Gel Antibody Screen Negative Med Orders - Current: Current Medications Albuterol/Ipratropium (Duoneb 3.0-0.5 Mg/3 Ml) 3 ml NEB Q6HRRT PRN PRN Reason: SOB/Wheezing Bisacodyl (Dulcolax) 5 mg PO DAILY PRN PRN Reason: Constipation Cyclobenzaprine HCl (Flexeril) 10 mg PO BID PRN PRN Reason: Spasms Docusate Sodium (Colace) 100 mg PO BID [facility] Last Admin: 07/30/19 21:01 Dose: 100 mg Ezetimibe (Zetia) 10 mg PO DAILY [facility] Famotidine (Pepcid) 20 mg PO Q12H [facility] Last Admin: 07/30/19 21:01 Dose: 20 mg Cefazolin Sodium/Dextrose 2 gm (/ Premix) 50 mls @ 100 mls/hr IV Q8H [facility] Stop: 07/31/19 11:29 Last Admin: 07/31/19 03:29 Dose: 100 mls/hr Ketorolac Tromethamine (Toradol) 15 mg IVPUSH Q6H PRN PRN Reason: Pain Last Admin: 07/31/19 06:53 Dose: 15 mg Magnesium Hydroxide (Milk Of Magnesia) 30 ml PO BID PRN PRN Reason: Constipation Miscellaneous Information (Remove Patch) 0 ea TRDERM Q24H [facility] Morphine Sulfate (Morphine) 2 mg IVPUSH Q2H PRN PRN Reason: Breakthrough Pain Naloxone HCl (Narcan) 0.1 mg IVPUSH Q5M PRN PRN Reason: Oversedation Nicotine (Habitrol) 21 mg TRDERM Q24H [facility] Last Admin: 07/30/19 15:55 Dose: Not Given Ondansetron HCl (Zofran) 4 mg IVPUSH Q6H PRN PRN Reason: Nausea/Vomiting Oxycodone/Acetaminophen (Percocet 325-5 Mg) 1 - 2 tab PO Q4H PRN PRN Reason: Pain Last Admin: 07/31/19 06:56 Dose: 2 tab Atorvastatin 30 Mg 0 each PO DAILY [facility] Desvenlafaxine Succinate [Pristiq] 25 Mg 0 each PO DAILY [facility] Rivaroxaban (Xarelto) 10 mg PO DAILY [facility] Scopolamine (Transderm-Scop) 1.5 mg TRDERM Q72H PRN PRN Reason: Nausea Senna (Senna) 8.6 mg PO BID PRN PRN Reason: Constipation Discontinued Medications Acetaminophen (Tylenol) 975 mg PO ONETIME [facility] Stop: 07/30/19 16:00 Last Admin: 07/30/19 09:58 Dose: 975 mg Bupivacaine HCl (Sensorcaine-Mpf 0.25%) Confirm Administered Dose 30 ml .ROUTE .STK-MED ONE Stop: 07/30/19 10:18 Last Admin: 07/30/19 13:12 Dose: 30 ml Cefazolin Sodium (Ancef) Confirm Administered Dose 2 gm .ROUTE .STK-MED ONE Stop: 07/30/19 08:45 Last Admin: 07/30/19 13:10 Dose: 2 gm Cefazolin Sodium (Ancef) Confirm Administered Dose 2 gm .ROUTE .STK-MED ONE Stop: 07/30/19 10:17 Morphine Sulfate 8 mg/Epinephrine HCl 0.3 mg/Cefuroxime Sodium 750 mg/Ketorolac Tromethamine 30 mg/Sodium Chloride 27.9 ml 0 mg .XX ONETIME ONE Stop: 07/30/19 11:01 Last Admin: 07/30/19 13:13 Dose: 788.3 mg Diphenhydramine HCl (Benadryl) 25 mg IVPUSH Q6H PRN PRN Reason: Pruritis Stop: 07/30/19 15:00 Ephedrine Sulfate (Ephedrine In Ns) Confirm Administered Dose 25 mg .ROUTE .STK- MED ONE Stop: 07/30/19 11:58 Ephedrine Sulfate (Ephedrine In Ns) Confirm Administered Dose 25 mg .ROUTE .STK- MED ONE Stop: 07/30/19 12:16 Ephedrine Sulfate (Ephedrine In Ns) Confirm Administered Dose 25 mg .ROUTE .STK- MED ONE Stop: 07/30/19 12:48 Fentanyl (Sublimaze) Confirm Administered Dose 100 mcg .ROUTE .STK-MED ONE Stop: 07/30/19 08:45 Fentanyl (Sublimaze) 50 mcg IVPUSH Q5M PRN PRN Reason: Pain Stop: 07/30/19 13:00 Lactated Ringer's (Ringers, Lactated) 1,000 mls @ 125 mls/hr IV ASDIRECTED [facility]SI Stop: 07/30/19 23:00 Last Admin: 07/30/19 09:35 Dose: 125 mls/hr Lactated Ringer's (Ringers, Lactated) Confirm Administered Dose 1,000 mls @ as directed .ROUTE .STK-MED ONE Stop: 07/30/19 11:57 Lactated Ringer's (Ringers, Lactated) Confirm Administered Dose 1,000 mls @ as directed .ROUTE .STK-MED ONE Stop: 07/30/19 12:17 Lidocaine HCl (Xylocaine-Mpf 1%) Confirm Administered Dose 4 mls @ as directed .ROUTE .STK-MED ONE Stop: 07/30/19 12:18 Sodium Chloride (Normal Saline) 500 mls @ 999 mls/hr IV .BOLUS ONE Stop: 07/30/19 16:07 Last Admin: 07/30/19 16:08 Dose: 999 mls/hr Lactated Ringer's (Ringers, Lactated) 500 mls @ 500 mls/hr IV .BOLUS ONE Stop: 07/30/19 22:18 Last Admin: 07/30/19 21:45 Dose: 500 mls/hr Iodine (Iodine 2% Mild Tincture) Confirm Administered Dose 30 ml .ROUTE .STK- MED ONE Stop: 07/30/19 10:18 Last Admin: 07/30/19 13:06 Dose: 18 ml Lidocaine/Sodium Bicarbonate (Buffered Lidocaine 1% In Ns 8.4%) 0.25 ml IDERM ONETIME PRN PRN Reason: Prior to IV Start Stop: 07/30/19 18:00 Last Admin: 07/30/19 09:36 Dose: 0.25 ml Midazolam HCl (Versed 1 Mg/Ml) Confirm Administered Dose 2 mg .ROUTE .STK-MED ONE Stop: 07/30/19 08:45 Midazolam HCl (Versed 1 Mg/Ml) Confirm Administered Dose 2 mg .ROUTE .STK-MED ONE Stop: 07/30/19 13:15 Morphine Sulfate (Duramorph Pf) Confirm Administered Dose 10 mg .ROUTE .STK-MED ONE Stop: 07/30/19 09:36 Ondansetron HCl (Zofran) 4 mg IVPUSH ONETIME PRN PRN Reason: Nausea/Vomiting Stop: 07/30/19 15:00 Oxycodone HCl (Oxycontin) 10 mg PO ONETIME [facility] Stop: 07/30/19 16:00 Last Admin: 07/30/19 09:58 Dose: 10 mg Phenylephrine HCl (Phenylephrine In Ns 100 Mcg/Ml) Confirm Administered Dose 1 mg .ROUTE .STK-MED ONE Stop: 07/30/19 12:24 Pregabalin (Lyrica) 50 mg PO ONETIME [facility] Stop: 07/30/19 16:00 Last Admin: 07/30/19 09:58 Dose: 50 mg Propofol (Diprivan 20 Ml) Confirm Administered Dose 600 mg .ROUTE .STK-MED ONE Stop: 07/30/19 08:45 Sodium Chloride (Saline Flush) 10 ml FLUSH ASDIRECTED PRN PRN Reason: Keep Vein Open Stop: 07/30/19 18:00 Tranexamic Acid (Cyklokapron) Confirm Administered Dose 1,000 mg .ROUTE .STK- MED ONE Stop: 07/30/19 10:17 Last Admin: 07/30/19 13:15 Dose: 1,000 mg Vancomycin HCl (Vancomycin) Confirm Administered Dose 1 gm .ROUTE .STK-MED ONE Stop: 07/30/19 10:17 Last Admin: 07/30/19 13:16 Dose: 1 gm - Exam Wound/Incisions: Dressing Dry and Intact General: Alert, Cooperative, No Acute Distress Lungs: Normal Respiratory Effort Extremities: Other (NVS intact for RLE. Mikayla's negative.) - Problem List Review Problem List Initiated/Reviewed/Updated: Yes - My Orders Last 24 Hours: Active Orders 24 hr Category Date Time Status Patient Status [ADT] Routine ADT 07/30/19 11:31 Active Oxygen Therapy [RC] .PRN Care 07/30/19 12:14 Active Ready for Discharge [RC] PER UNIT ROUTINE Care 07/31/19 08:09 Ordered Vital Signs [RC] Q1H Care 07/30/19 12:14 Inactive Regular Diet [DIET] Diet 07/30/19 Lunch Active Acetaminophen/oxyCODONE [Percocet 325-5 MG] Med 07/30/19 11:30 Active 1 - 2 tab PO Q4H PRN Albuterol/Ipratropium [DuoNeb 3.0-0.5 MG/3 ML] Med 07/30/19 11:36 Active 3 ml NEB Q6HRRT PRN Bisacodyl [Dulcolax] Med 07/30/19 11:30 Active 5 mg PO DAILY PRN Cyclobenzaprine [Flexeril] Med 07/30/19 11:30 Active 10 mg PO BID PRN Docusate Sodium [Colace] Med 07/30/19 21:00 Active 100 mg PO BID Ezetimibe [Zetia] Med 07/31/19 09:00 Active 10 mg PO DAILY Famotidine [Pepcid] Med 07/30/19 21:00 Active 20 mg PO Q12H Ketorolac [Toradol] Med 07/30/19 11:30 Active 15 mg IVPUSH Q6H PRN Magnesium Hydroxide [Milk of Magnesia] Med 07/30/19 11:30 Active 30 ml PO BID PRN Morphine Med 07/30/19 11:30 Active 2 mg IVPUSH Q2H PRN Naloxone [Narcan] Med 07/30/19 11:30 Active 0.1 mg IVPUSH Q5M PRN Nicotine [Habitrol] Med 07/30/19 14:00 Active 21 mg TRDERM Q24H Ondansetron [Zofran] Med 07/30/19 11:30 Active 4 mg IVPUSH Q6H PRN Patient's Own Medication [Ptom] Med 07/31/19 09:00 Active 0 each PO DAILY Patient's Own Medication [Ptom] Med 07/31/19 09:00 Active 0 each PO DAILY Remove Patch Med 07/31/19 14:00 Active 0 ea TRDERM Q24H Rivaroxaban [Xarelto] Med 07/31/19 09:00 Active 10 mg PO DAILY Scopolamine [Transderm-Scop] Med 07/30/19 12:45 Active 1.5 mg TRDERM Q72H PRN Sennosides [Senna] Med 07/30/19 11:30 Active 8.6 mg PO BID PRN ceFAZolin [Ancef] 2 gm Med 07/30/19 19:00 Active Premix Bag 1 bag IV Q8H Medication Administration Instruction [OM.PC] Routine Oth 07/30/19 07:28 Ordered Pulse Oximetry Continuous Monitoring [OM.PC] Routine Oth 07/30/19 12:14 Active Medication Orders Albuterol/Ipratropium (Duoneb 3.0-0.5 Mg/3 Ml) 3 ml NEB Q6HRRT PRN PRN Reason: SOB/Wheezing Bisacodyl (Dulcolax) 5 mg PO DAILY PRN PRN Reason: Constipation Cyclobenzaprine HCl (Flexeril) 10 mg PO BID PRN PRN Reason: Spasms Docusate Sodium (Colace) 100 mg PO BID [facility] Last Admin: 07/30/19 21:01 Dose: 100 mg Ezetimibe (Zetia) 10 mg PO DAILY [facility] Famotidine (Pepcid) 20 mg PO Q12H [facility] Last Admin: 07/30/19 21:01 Dose: 20 mg Cefazolin Sodium/Dextrose 2 gm (/ Premix) 50 mls @ 100 mls/hr IV Q8H [facility] Stop: 07/31/19 11:29 Last Admin: 07/31/19 03:29 Dose: 100 mls/hr Infusion: 07/30/19 18:58 Dose: 100 mls/hr Admin: 07/30/19 18:28 Dose: 100 mls/hr Ketorolac Tromethamine (Toradol) 15 mg IVPUSH Q6H PRN PRN Reason: Pain Last Admin: 07/31/19 06:53 Dose: 15 mg Admin: 07/30/19 22:58 Dose: 15 mg Magnesium Hydroxide (Milk Of Magnesia) 30 ml PO BID PRN PRN Reason: Constipation Miscellaneous Information (Remove Patch) 0 ea TRDERM Q24H [facility] Morphine Sulfate (Morphine) 2 mg IVPUSH Q2H PRN PRN Reason: Breakthrough Pain Naloxone HCl (Narcan) 0.1 mg IVPUSH Q5M PRN PRN Reason: Oversedation Nicotine (Habitrol) 21 mg TRDERM Q24H [facility] Last Admin: 07/30/19 15:55 Dose: Not Given Ondansetron HCl (Zofran) 4 mg IVPUSH Q6H PRN PRN Reason: Nausea/Vomiting Oxycodone/Acetaminophen (Percocet 325-5 Mg) 1 - 2 tab PO Q4H PRN PRN Reason: Pain Last Admin: 07/31/19 06:56 Dose: 2 tab Admin: 07/30/19 22:52 Dose: 2 tab Admin: 07/30/19 18:28 Dose: 2 tab Atorvastatin 30 Mg 0 each PO DAILY [facility] Desvenlafaxine Succinate [Pristiq] 25 Mg 0 each PO DAILY [facility] Rivaroxaban (Xarelto) 10 mg PO DAILY [facility] Scopolamine (Transderm-Scop) 1.5 mg TRDERM Q72H PRN PRN Reason: Nausea Senna (Senna) 8.6 mg PO BID PRN PRN Reason: Constipation - Assessment Assessment (Free Text/Narrative):: POD#1 - right VASU - Plan Plan (Free Text/Narrative):: 1. Hgb 11.3. 2. Xarelto 10 mg PO daily (the pt is a smoker). Smoking cessation was discussed today. 3. Discharge to home today. 4. Outpatient therapy. The pt's case was discussed with Dr. Sesay.
--- NOTE | 2019-07-31 08:43 | PCM48HPAN ---
Post Anesthesia Note - EVALUATION WITHIN 48HRS OF ANESTHETIC Vital Signs in Normal Range: Yes Patient Participated in Evaluation: Yes Respiratory Function Stable: Yes Airway Patent: Yes Cardiovascular Function Stable: Yes Hydration Status Stable: Yes Pain Control Satisfactory: Yes Nausea and Vomiting Control Satisfactory: Yes Mental Status Recovered: Yes Vital Signs: Last Vital Signs Temp 37.3 C 07/31/19 08:10 Pulse 81 07/31/19 08:10 Resp 16 07/31/19 03:25 BP 114/68 07/31/19 08:10 Pulse Ox 90 L 07/31/19 08:10 - COMMENTS/OBSERVATIONS Free Text/Narrative:: no anesthesias complications noted
[2019-07-31] MEDS ORDERED: ATORVASTATIN PO SCH (09:00)
[2019-07-31] MEDS ORDERED: Ezetimibe 10 MG Tab PO SCH (09:00)
[2019-07-31] MEDS ORDERED: Desvenlafaxine Succinate [Pristiq] 25 MG PO SCH (09:00)
[2019-07-31] MEDS ORDERED: Rivaroxaban 10 MG Tab PO SCH (09:00)
--- NOTE | 2019-07-31 09:19 | PCM.DCSUM1 ---
Discharge Summary - Hospital Course Brief History: Kim Duggan" is a 54 yo female who underwent right VASU with Dr. Sesay on 07-30-2019. The procedure was completed under spinal anesthesia with sedation. The pt tolerated the procedure well and was admitted to the Medical-Surgical Unit. Medical management was provided by the Hospitalist service. The pt's Hospital course was remarkable for post-op PVCs. The pt was placed on telemetry and the monitored by the Hospitalist service. The pt's Hgb on POD#1 was 11.3. On POD#1, Xarelto 10mg PO daily was initiated for VTE prophylaxis. SCDs and TEDs were also ordered. A Mepilex dressing was placed at the incision site at the time of surgery and remained clean and dry. The pt participated in P.T. and O.T. and progressed well. She followed the VASU precautions. The pt was allowed to WBAT. On POD#1, the pt was deemed appropriate to discharge to home. - Discharge Data Discharge Date: 07/31/19 Discharge Disposition: Home, Self-Care 01 Condition: Good - Referral to Home Health Primary Care Physician: Leydi Alejandra MD - Patient Summary/Data Consults: Consultations 07/30/19 06:43 OT Evaluation and Treatment [CONS] Routine PT Evaluation and Treatment [CONS] Routine 07/30/19 06:44 Consult to Physician [CONS] Routine - Patient Instructions Diet: Usual Diet as Tolerated Activity: Apply Ice, As Tolerated, Elevate Extremity, Full Weight Bearing Activity, Other: Follow the total hip precautions. Driving: Do Not Drive Showering/Bathing: May Shower Wound/Incision Care: Keep Operative Site/Wound Site Clean and Dry, Do NOT Change Dressing Notify Provider of: Fever, Increased Pain, Swelling and Redness, Drainage, Nausea and/or Vomiting Other/Special Instructions: Please get up and moving around EVERY HOUR while awake. This helps to prevent blood clots. Please use your walker and have help with mobility as needed. Take a short walk in your home every hour while awake. Please take the Xarelto blood thinner medication daily as directed. At home, please complete the exercises that you learned during the Hospital stay. Schedule for physical therapy. Follow the total hip precautions (no bending over, crossing your legs or twisting on your leg). Use the pain medication as needed. The medication may cause drowsiness and constipation. Contact your primary care provider for instructions if you are constipated. You may use a stool softener like docusate sodium or Colace 100mg twice daily and/or a laxative like Miralax daily for constipation. Increase your water and fiber intake while you are using the pain medication. Discontinue use of the pain medication as soon as able. Please do not use other medications that may cause drowsiness (other pain medications, anxiety pills, cold medications, sleeping pills, etc) while using the prescription pain medication. Do not use alcohol while using the pain medication. You may use acetaminophen or Tylenol for pain management, however, please ensure you are not using over 4000 mg or 4 grams of acetaminophen per day from all sources. Your pain medication has 325mg of acetaminophen per tablet. At this time, please do not use ibuprofen (Motrin, Advil) or naproxen (Aleve) for pain management as you are using the Xarelto. When the Xarelto course is completed in 5 weeks, you could use ibuprofen or naproxen for pain management (if this is allowed by your primary care provider) . Wear the ANN hose during the day and you may remove these at night. Elevate the limb to decrease swelling. Place ice to the area often. Place a towel between your skin and the blue pad. Use the incentive spirometer often. Take deep breaths throughout the day. Please keep the dressing in place until follow -up. Notify the Clinic if the dressing becomes saturated. Increase your protein intake while you are healing. Call the Clinic with questions or concerns - [phone]. - Discharge Plan *PRESCRIPTION DRUG MONITORING PROGRAM REVIEWED*: No *COPY OF PRESCRIPTION DRUG MONITORING REPORT IN PATIENT JACKIE: No Prescriptions/Med Rec: Acetaminophen/oxyCODONE [Percocet 325-5 MG] 1 - 2 tab PO Q4H PRN #60 tablet PRN Reason: Pain Cyclobenzaprine [Flexeril] 10 mg PO BID PRN #40 tablet PRN Reason: Spasms Rivaroxaban [Xarelto] 10 mg PO DAILY #35 tablet Home Medications: Home Meds Ezetimibe [Zetia] 10 mg PO DAILY #1 11/04/14 [Rx] atorvaSTATin [Lipitor] 30 mg PO DAILY #1 11/04/14 [Rx] Desvenlafaxine Succinate [Pristiq] 25 mg PO DAILY 07/30/19 [History] Acetaminophen/oxyCODONE [Percocet 325-5 MG] 1 - 2 tab PO Q4H PRN #60 tablet 05/11 [Rx] Bisacodyl [Dulcolax] 5 mg PO DAILY PRN #0 tablet 07/31/19 [Rx] Cyclobenzaprine [Flexeril] 10 mg PO BID PRN #40 tablet 07/31/19 [Rx] Docusate Sodium [Colace] 100 mg PO BID cap 07/31/19 [Rx] Famotidine [Pepcid] 20 mg PO Q12H tablet 07/31/19 [Rx] Magnesium Hydroxide [Milk of Magnesia] 30 ml PO BID PRN cup 07/31/19 [Rx] Nicotine [Habitrol] 21 mg TRDERM Q24H patch 07/31/19 [Rx] Remove Patch 0 ea TRDERM Q24H each 07/31/19 [Rx] Rivaroxaban [Xarelto] 10 mg PO DAILY #35 tablet 07/31/19 [Rx] Scopolamine [Transderm-Scop] 1.5 mg TRDERM Q72H PRN patch 07/31/19 [Rx] Sennosides [Senna] 8.6 mg PO BID PRN tablet 07/31/19 [Rx] Patient Handouts: Total Hip Replacement, [id number], Steps to Quit Smoking Referrals: Leydi Alejandra MD [Primary Care Provider] - Joslyn Francois PA-C [Physician Receiving Worker] - (08-07-2019 - 11:30 am 08-14-2019 - 11:30 am 09-11-2019 - 11:15 am) - Discharge Summary/Plan Comment DC Time >30 min.: No - Patient Data Vitals - Most Recent: Last Vital Signs Temp 99.1 F 07/31/19 08:10 Pulse 81 07/31/19 08:10 Resp 16 07/31/19 03:25 BP 114/68 07/31/19 08:10 Pulse Ox 90 L 07/31/19 08:10 Weight - Most Recent: 184 lb 11.2 oz I&O - Last 24 hours: Intake & Output 07/30/19 07/31/19 07/31/19 22:59 06:59 14:59 Intake Total 2300 1500 Output Total 150 1600 Balance 2150 -100 Lab Results - Last 24 hrs: Laboratory Results - last 24 hr 07/30/19 07/31/19 07/31/19 Range/Units 09:27 05:57 05:57 WBC 6.00 (3.98-10.04) K/mm3 RBC 3.72 L (3.98-5.22) M/mm3 Hgb 11.3 (11.2-15.7) gm/dl Hct 35.7 (34.1-44.9) % MCV 96.0 H (79.4-94.8) fl MCH 30.4 (25.6-32.2) pg MCHC 31.7 L (32.2-35.5) g/dl RDW Std Deviation 41.4 (36.4-46.3) fL Plt Count 189 (182-369) K/mm3 MPV 9.4 (9.4-12.3) fl Sodium 142 (136-145) mEq/L Potassium 3.9 (3.5-5.1) mEq/L Chloride 106 (98-107) mEq/L Carbon Dioxide 29 (21-32) mEq/L Anion Gap 10.9 (5-15) BUN 11 (7-18) mg/dL Creatinine 0.9 (0.55-1.02) mg/dL Est Cr Clr Drug Dosing 60.99 mL/min Estimated GFR (MDRD) > 60 (>60) mL/min BUN/Creatinine Ratio 12.2 L (14-18) Glucose 98 (74-106) mg/dL Calcium 8.3 L (8.5-10.1) mg/dL Total Bilirubin 0.5 (0.2-1.0) mg/dL AST 55 H (15-37) U/L ALT 35 (14-59) U/L Alkaline Phosphatase 76 (46-116) U/L Total Protein 5.7 L (6.4-8.2) g/dl Albumin 3.0 L (3.4-5.0) g/dl Globulin 2.7 gm/dL Albumin/Globulin Ratio 1.1 (1-2) Blood Type A NEGATIVE Gel Antibody Screen Negative Med Orders - Current: Current Medications Albuterol/Ipratropium (Duoneb 3.0-0.5 Mg/3 Ml) 3 ml NEB Q6HRRT PRN PRN Reason: SOB/Wheezing Bisacodyl (Dulcolax) 5 mg PO DAILY PRN PRN Reason: Constipation Cyclobenzaprine HCl (Flexeril) 10 mg PO BID PRN PRN Reason: Spasms Docusate Sodium (Colace) 100 mg PO BID [facility] Last Admin: 07/30/19 21:01 Dose: 100 mg Ezetimibe (Zetia) 10 mg PO DAILY [facility] Famotidine (Pepcid) 20 mg PO Q12H [facility] Last Admin: 07/30/19 21:01 Dose: 20 mg Cefazolin Sodium/Dextrose 2 gm (/ Premix) 50 mls @ 100 mls/hr IV Q8H [facility] Stop: 07/31/19 11:29 Last Admin: 07/31/19 03:29 Dose: 100 mls/hr Ketorolac Tromethamine (Toradol) 15 mg IVPUSH Q6H PRN PRN Reason: Pain Last Admin: 07/31/19 06:53 Dose: 15 mg Magnesium Hydroxide (Milk Of Magnesia) 30 ml PO BID PRN PRN Reason: Constipation Miscellaneous Information (Remove Patch) 0 ea TRDERM Q24H [facility] Morphine Sulfate (Morphine) 2 mg IVPUSH Q2H PRN PRN Reason: Breakthrough Pain Naloxone HCl (Narcan) 0.1 mg IVPUSH Q5M PRN PRN Reason: Oversedation Nicotine (Habitrol) 21 mg TRDERM Q24H [facility] Last Admin: 07/30/19 15:55 Dose: Not Given Ondansetron HCl (Zofran) 4 mg IVPUSH Q6H PRN PRN Reason: Nausea/Vomiting Oxycodone/Acetaminophen (Percocet 325-5 Mg) 1 - 2 tab PO Q4H PRN PRN Reason: Pain Last Admin: 07/31/19 06:56 Dose: 2 tab Atorvastatin 30 Mg 0 each PO DAILY [facility] Desvenlafaxine Succinate [Pristiq] 25 Mg 0 each PO DAILY [facility] Rivaroxaban (Xarelto) 10 mg PO DAILY [facility] Scopolamine (Transderm-Scop) 1.5 mg TRDERM Q72H PRN PRN Reason: Nausea Senna (Senna) 8.6 mg PO BID PRN PRN Reason: Constipation Discontinued Medications Acetaminophen (Tylenol) 975 mg PO ONETIME [facility] Stop: 07/30/19 16:00 Last Admin: 07/30/19 09:58 Dose: 975 mg Bupivacaine HCl (Sensorcaine-Mpf 0.25%) Confirm Administered Dose 30 ml .ROUTE .STK-MED ONE Stop: 07/30/19 10:18 Last Admin: 07/30/19 13:12 Dose: 30 ml Cefazolin Sodium (Ancef) Confirm Administered Dose 2 gm .ROUTE .STK-MED ONE Stop: 07/30/19 08:45 Last Admin: 07/30/19 13:10 Dose: 2 gm Cefazolin Sodium (Ancef) Confirm Administered Dose 2 gm .ROUTE .STK-MED ONE Stop: 07/30/19 10:17 Morphine Sulfate 8 mg/Epinephrine HCl 0.3 mg/Cefuroxime Sodium 750 mg/Ketorolac Tromethamine 30 mg/Sodium Chloride 27.9 ml 0 mg .XX ONETIME ONE Stop: 07/30/19 11:01 Last Admin: 07/30/19 13:13 Dose: 788.3 mg Diphenhydramine HCl (Benadryl) 25 mg IVPUSH Q6H PRN PRN Reason: Pruritis Stop: 07/30/19 15:00 Ephedrine Sulfate (Ephedrine In Ns) Confirm Administered Dose 25 mg .ROUTE .STK- MED ONE Stop: 07/30/19 11:58 Ephedrine Sulfate (Ephedrine In Ns) Confirm Administered Dose 25 mg .ROUTE .STK- MED ONE Stop: 07/30/19 12:16 Ephedrine Sulfate (Ephedrine In Ns) Confirm Administered Dose 25 mg .ROUTE .STK- MED ONE Stop: 07/30/19 12:48 Fentanyl (Sublimaze) Confirm Administered Dose 100 mcg .ROUTE .STK-MED ONE Stop: 07/30/19 08:45 Fentanyl (Sublimaze) 50 mcg IVPUSH Q5M PRN PRN Reason: Pain Stop: 07/30/19 13:00 Lactated Ringer's (Ringers, Lactated) 1,000 mls @ 125 mls/hr IV ASDIRECTED MANSI Stop: 07/30/19 23:00 Last Admin: 07/30/19 09:35 Dose: 125 mls/hr Lactated Ringer's (Ringers, Lactated) Confirm Administered Dose 1,000 mls @ as directed .ROUTE .STK-MED ONE Stop: 07/30/19 11:57 Lactated Ringer's (Ringers, Lactated) Confirm Administered Dose 1,000 mls @ as directed .ROUTE .STK-MED ONE Stop: 07/30/19 12:17 Lidocaine HCl (Xylocaine-Mpf 1%) Confirm Administered Dose 4 mls @ as directed .ROUTE .STK-MED ONE Stop: 07/30/19 12:18 Sodium Chloride (Normal Saline) 500 mls @ 999 mls/hr IV .BOLUS ONE Stop: 07/30/19 16:07 Last Admin: 07/30/19 16:08 Dose: 999 mls/hr Lactated Ringer's (Ringers, Lactated) 500 mls @ 500 mls/hr IV .BOLUS ONE Stop: 07/30/19 22:18 Last Admin: 07/30/19 21:45 Dose: 500 mls/hr Iodine (Iodine 2% Mild Tincture) Confirm Administered Dose 30 ml .ROUTE .STK- MED ONE Stop: 07/30/19 10:18 Last Admin: 07/30/19 13:06 Dose: 18 ml Lidocaine/Sodium Bicarbonate (Buffered Lidocaine 1% In Ns 8.4%) 0.25 ml IDERM ONETIME PRN PRN Reason: Prior to IV Start Stop: 07/30/19 18:00 Last Admin: 07/30/19 09:36 Dose: 0.25 ml Midazolam HCl (Versed 1 Mg/Ml) Confirm Administered Dose 2 mg .ROUTE .STK-MED ONE Stop: 07/30/19 08:45 Midazolam HCl (Versed 1 Mg/Ml) Confirm Administered Dose 2 mg .ROUTE .STK-MED ONE Stop: 07/30/19 13:15 Morphine Sulfate (Duramorph Pf) Confirm Administered Dose 10 mg .ROUTE .STK-MED ONE Stop: 07/30/19 09:36 Ondansetron HCl (Zofran) 4 mg IVPUSH ONETIME PRN PRN Reason: Nausea/Vomiting Stop: 07/30/19 15:00 Oxycodone HCl (Oxycontin) 10 mg PO ONETIME [facility] Stop: 07/30/19 16:00 Last Admin: 07/30/19 09:58 Dose: 10 mg Phenylephrine HCl (Phenylephrine In Ns 100 Mcg/Ml) Confirm Administered Dose 1 mg .ROUTE .STK-MED ONE Stop: 07/30/19 12:24 Pregabalin (Lyrica) 50 mg PO ONETIME [facility] Stop: 07/30/19 16:00 Last Admin: 07/30/19 09:58 Dose: 50 mg Propofol (Diprivan 20 Ml) Confirm Administered Dose 600 mg .ROUTE .STK-MED ONE Stop: 07/30/19 08:45 Sodium Chloride (Saline Flush) 10 ml FLUSH ASDIRECTED PRN PRN Reason: Keep Vein Open Stop: 07/30/19 18:00 Tranexamic Acid (Cyklokapron) Confirm Administered Dose 1,000 mg .ROUTE .STK- MED ONE Stop: 07/30/19 10:17 Last Admin: 07/30/19 13:15 Dose: 1,000 mg Vancomycin HCl (Vancomycin) Confirm Administered Dose 1 gm .ROUTE .STK-MED ONE Stop: 07/30/19 10:17 Last Admin: 07/30/19 13:16 Dose: 1 gm
[2019-07-31] MEDS: Docusate Sodium 100 MG Cap PO SCH (09:39)
[2019-07-31] MEDS: Famotidine 20 MG Tab PO SCH (09:40)
[2019-07-31 12:38] VITALS: BP 102/61; PULSE 71
--- NOTE | 2019-08-03 10:31 | PCM.OPNOTE ---
- General Post-Op/Procedure Note Date of Surgery/Procedure: 07/30/19 Operative Procedure(s): right total hip arthroplasty Pre Op Diagnosis: right hip osteoarthrosis Post-Op Diagnosis: Same Anesthesia Technique: Local, MAC, Spinal Primary Surgeon: Servando Sesay Anesthesia Provider: Wei Martinez Hardness Inspector: Joslyn Francois Hardness Inspector: Susan Turner EBMary in mLs: 300 Complications: None Condition: Good Free Text/Narrative:: 52 cup 4 stem 36-5
--- NOTE | 2019-08-03 11:09 | OR ---
DATE OF OPERATION: 07/30/2019 SURGEON: Servando Sesay MD OPERATION PERFORMED: Right total hip arthroplasty. PREOPERATIVE DIAGNOSIS: Right hip osteoarthrosis. POSTOPERATIVE DIAGNOSIS: Right hip osteoarthrosis. ANESTHESIA: Local MAC with spinal. ANESTHESIA PROVIDER: Wei Martinez CRNA ASSISTANTS: 1. Joslyn Francois PA-C. 2. Susan Turner LPN. ESTIMATED BLOOD LOSS: 100 mL. COMPLICATIONS: None. CONDITION: Stable. IMPLANTS: 1. [place] size 52 mm solid Tritanium II acetabular cup. 2. Yvan size 4 Accolade II stem. 3. Yvan size 36 -5 Biolox femoral head. DESCRIPTION OF PROCEDURE: The patient was identified in the preop holding area. Proper site was marked and identified by the surgeon. The patient was taken back to the operative theater where, after adequate anesthesia, the patient was placed in a left lateral decubitus position. Axillary roll was placed. Pegs were then placed and were well padded. The patient's gluteal fold was parallel to the floor. At this time, the right hip was then sterilely prepped and draped in the usual sterile fashion. OR time-out was performed. The patient received 2 g of IV Ancef. Standard posterior incision was made centered over the greater trochanter. This was taken down to the IT band and gluteal fascia, which was incised along the incisional length. Charnley retractor was then placed. The short external rotators were identified, and takedown of the short external rotators was done from the level of the piriformis down to the lesser trochanter. The hip was then dislocated, and the neck cut was completed and found to be adequate. At this time, attention was turned to the acetabulum. Anterior and posterior acetabular retractors were placed. Circumferential removal of the labrum was undertaken as well as pulvinar. Starting with the 48 reamer, I was able to ream up to a 52 which was found to have good, adequate purchase. A 52 mm Tritanium 2 cup was then impacted into place and found to be stable. A 36 flat liner was then impacted into place, and attention was turned to the femur. A box chisel was used out laterally on the femur. A starter awl was placed down the canal. Starting with the 0 broach, I was able to broach up to a size 4 which was found to be rotationally and vertically stable. A 36 +0 was trialed and was found to be a little bit long, so a 36 -5 was trialed and found to have adequate buddhist of leg lengths and was stable throughout range of motion. The trial implants were then removed, and a size 4 Accolade II stem was impacted into place along with the 36 -5 head. The hip was then relocated. A #5 Ethibond suture was used for closure of the short external rotators and capsule. 1 L of dilute Betadine solution was irrigated through the hip along with 3 L of pulse lavage irrigation with Ancef. Periarticular injection was completed. Topical tranexamic acid and vancomycin powder were placed. A #2 barbed suture was used for closure of the IT band and gluteal fascia, 2-0 Vicryl was used subcutaneously, and Prineo was used for the skin. The patient tolerated the procedure well and was sent to the PACU in stable condition. JORDAN /[id number]
== END 2019-07-31 12:55 | disposition home or self-care (01) | DRG 301 ==
LOC: JD.MS 08:57
PROVIDERS: ADMIT Orthopaedic Surgery; ATTEND Orthopaedic Surgery
PROC: 0SR903Z Replacement of Right Hip Joint with Ceramic Synthetic Substitute, Open Approach (ICD-10-PCS; principal; 2019-07-30)
DX: M16.11 Unilateral primary osteoarthritis, right hip (principal); E78.00 Pure hypercholesterolemia, unspecified; K52.9 Noninfective gastroenteritis and colitis, unspecified; K21.9 Gastro-esophageal reflux disease without esophagitis; F41.9 Anxiety disorder, unspecified; F32.9 Major depressive disorder, single episode, unspecified; F17.210 Nicotine dependence, cigarettes, uncomplicated; K57.90 Diverticulosis of intestine, part unspecified, without perforation or abscess without bleeding; I10 Essential (primary) hypertension; E78.5 Hyperlipidemia, unspecified; M85.80 Other specified disorders of bone density and structure, unspecified site; R74.8 Abnormal levels of other serum enzymes; Z79.82 Long term (current) use of aspirin; Z79.899 Other long term (current) drug therapy; Z88.1 Allergy status to other antibiotic agents; Z88.8 Allergy status to other drugs, medicaments and biological substances; Z86.010 Personal history of colon polyps; Z87.442 Personal history of urinary calculi; Z90.49 Acquired absence of other specified parts of digestive tract; Z71.6 Tobacco abuse counseling
CPT/HCPCS: 01214; 36415; 73501-26-RT; 73501-RT; 80053; 85027; 86850; 86900; 86901; 87641; 94762; 97110-GP; 97116-GP; 97161-GP; 97165-GO; 97530-GP; 97535-GO; A9270-GY; C1776; J0171; J0690; J0697; J1885; J2001; J2250; J2270; J2370; J2704; J3010; J3370; J3490; J7040; J7050; J7120